=== PATIENT | male | born 1950 | race African-American/Black ===

== ENCOUNTER 2017-12-30 23:54 | Emergency (ER) | payer OTHER ==
[~2017-12-30] VITALS: Ht 188 cm; Wt 83.5 kg
== END 2017-12-31 01:02 | disposition home or self-care (01) ==
LOC: FSED 23:54
DX: R33.9 Retention of urine, unspecified (principal); N40.1 Benign prostatic hyperplasia with lower urinary tract symptoms; D86.9 Sarcoidosis, unspecified
CPT/HCPCS: 51700; 99283